=== PATIENT | male | born 1995 | race Caucasian/White ===

== ENCOUNTER 2021-09-25 08:27 | Outpatient (CLI) | payer OTHER, SELFPAY ==
[2021-09-25 16:53] LABS: HIV 1/2/P24 Combo Screen* Negative (Negative)
== END 2021-09-25 08:28 | disposition home or self-care (01) ==
PROVIDERS: PCP Family Medicine; Visit Provider Family Medicine
DX: Z11.3 Encounter for screening for infections with a predominantly sexual mode of transmission (principal)
CPT/HCPCS: 86701; 86702; 86703

== ENCOUNTER 2023-09-03 10:06 | Day surgery (SDC) | payer OTHER, SELFPAY ==
[2023-09-03] VITALS (13 sets, daily range): BP systolic 124–149; BP diastolic 69–91; PULSE 46–70; RESP 16; TEMP 36.4–36.6; O2SAT 98–100; BMI 25.8
--- OUTSIDE RECORDS SUMMARY | 2023-09-03 10:08 | XMS_ITS | Clinical Summary ---
Author Organization [facility] Address [place], [place] [address] Care Team Providers Care Parole Agent Name Role Phone Rey Lux MD Primary Care Provider [phone] Allergies No known active allergies Medications Medication Sig Dispensed Refills Start Date End Date Status nitroglycerin 0.2 mg/hr (NITRO-DUR) 0.2 mg/hr patchIndications:Quad riceps tendinitis Apply 1 Patch on dry, clean, hairless skin every morning. Cut patch in half and place on quad tendon. Wear for 12 hours each day only. 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 Social History Tobacco Use Types Packs/Day Years Used Date Smoking Tobacco: Never Smokeless Tobacco: Never Tobacco Cessation:Counseling Given: Yes Alcohol Use Standard Drinks/Week Comments No 0 (1 standard drink = 0.6 oz pur e alcohol) Sex and Gender Information Value Date Recorded Sex Assigned at Not on file Gender Identity Not on file Sexual Orientation Not on file Obstetrics History Last Filed Vital Signs Vital Sign Reading Time Taken Comments Blood Pressure 133/76 01/15/2018 9:25 AM [employer] Pulse 72 01/15/2018 9:25 AM [employer] Temperature 36.6 ??C (97.9 ??F) 07/17/2017 3:26 PM CD T Respiratory Rate - - Oxygen Saturation 96% 01/15/2018 9:25 AM [employer] Inhaled Oxygen Concentration - - Weight 85.7 kg (189 lb) 07/17/2017 3:26 PM CDT Height 178 cm (5' 10.08) 07/17/2017 3:26 PM CDT Body Mass Index 27.06 07/17/2017 3:26 PM CDT Plan of Treatment Health Maintenance Due Date Last Done Comments Tdap 2008 Depression screening for age 12+ 2009 HIV for age 15-65 2012 HPV series for age 9-26 (1 - Male 3-dose series) 2012 Hepatitis C screening for ag e 18-79 12/02/2015 Tetanus booster 2017 BMI (ht and wt on same day) for age 18+ 07/17/2018 07/17/2017, 04/18/2017 COVID-19 vaccine series (2022- season) 2022 Influenza for age 9-49 10/13/2023 Pneumococcal series for age 6-64 Aged Out No longer eligible b ased on patient's age to complete this topic Care Teams Parole Agent Relationship Specialty Start Date End Date Rey Lux MD [address] [place] [id number] PCP - General Family Practice 01/15/18
[2023-09-03] MEDS: SODIUM CHLORIDE 0.9 % (FLUSH) 10 ML SYRINGE IVF (10:53)
[2023-09-03] MEDS: LACTATED RINGERS 1000 ML 1,000 ML 100 ML IV (10:53)
--- NOTE | 2023-09-03 13:07 | PM.GSPRC ---
Operative Note Date of procedure: 09/03/23 Pre-op diagnosis: Anal mass x2 Post-op diagnosis: Same Type of Procedure: Excision of anal mass x2 Indications: Patient is a 27-year-old male who presented to clinic with protruding tissue from the anal opening. Clinical exam demonstrates 2 protruding lesions of the anal canal. Risks and benefits of excision in the operating room were discussed at length with the patient. Risks included, but were not limited to: Bleeding, infection, risk of damage to surrounding structures and possible need for additional procedures. All questions and concerns were addressed with patient agreeing to proceed. Procedure Description: After discussing the risks and benefits of the procedure, the patient signed informed consent.? The operative site was marked and the patient was brought to the operating room and placed on the operating table in supine position.? Care was taken to pad the patient's pressure points.?? The patient was then given sedation by anesthesia and a spinal block performed.?The patient was then transferred to the Operating Room table, placed in the prone jackknife position with appropriate bumps and padding. Care was taken to ensure the genitalia and breasts were properly positioned on the hip and chest rolls, respectively. The shoulders and arms were positioned with care to protect the brachial plexus. The buttocks were taped laterally. A sterile prep and drape was done in the usual fashion. External examination, digital rectal examination, and anoscopic examination were all done and revealed a 2 cm pedunculated mass on the anal verge posterior left lateral, as well as a 1.5 cm polyp more proximal in the anal canal and left lateral. Attention was 1st directed to the 1.5 cm polyp within the anal canal left lateral peer An elliptical incision was made with a needle tip electrocautery from the anoderm up into the anal canal just above the dentate line. Careful dissection of the mucosa was done in the plane between the internal anal sphincter and the submucosal vascular plexus. Having established the proper plane, the polyp tissue was then excised with the Ligasure device and sent to Pathology as proximal anal mass for analysis. Care was taken to preserve mucosa for a tension-free closure. The wound was closed in a running locked manner starting at the apex (proximal aspect of elliptical excision) with 4-0 chromic suture, coming out to the anoderm and then running back up in a simple fashion and tying down at the apex. Hemostasis was excellent. Attention was then directed to the 2 cm pedunculated mass on the anal verge posterior left lateral. An elliptical incision was made with a needle-tip electrocautery around the mass. Careful dissection mucosa was done in the plane between the internal anal sphincter and the submucosal vascular plexus. After the proper plane was established the polyp tissue was then excised with the LigaSure device and sent to pathology as distal anal mass for analysis. Care was taken to preserve mucus for a tension-free closure. The wound was closed in a running locked manner starting at the apex (proximal aspect of elliptical excision) with 4-0 chromic suture, coming out to the anoderm and then running back in a simple fashion and tied down at the apex. Hemostasis was excellent. A mixture of 0.25% bupivacaine and Exparel was used to anesthetize the incision sites. A bilateral pudendal nerve block was performed. The patient tolerated procedure well. There were no apparent complications. Instrument, sponge, and needle counts were correct at the end of the case. Findings: Anal masses x2, excised and sent to pathology. Anesthesia: MAC and spinal Surgeon: Lisa Woody MD Estimated blood loss (mL): 5 Additional Specimen Information: 1. Distal anal mass 2. Proximal anal mass Condition: stable Disposition: PACU
[2023-09-03] MEDS: BUPIVACAINE 0.25% 30 ML INJECTION (13:08)
[2023-09-03] MEDS: BUPIVACAINE LIPOSOME 133 MG/10 ML INJ INFILTRATI (13:08)
--- NOTE | 2023-09-03 13:10 | W.ANESCHARGE ---
Anesthesia Charges Start Date/Time Anesthesia Start Date: 09/03/23 Anesthesia Start Time: 12:15 Stop Date/Time Anesthesia Stop Date: 09/03/23 Anesthesia Stop Time: 13:11
--- NOTE | 2023-09-03 13:26 | W.ANESCHARGE ---
Anesthesia Charges Start Date/Time Anesthesia Start Date: 09/03/23 Anesthesia Start Time: 12:15 Stop Date/Time Anesthesia Stop Date: 09/03/23 Anesthesia Stop Time: 13:11
== END 2023-09-03 15:36 | disposition home or self-care (01) ==
PROVIDERS: PCP Family Medicine; Visit Provider Surgery
PROC: (CPT 46922; principal; 2023-09-03 12:30)
DX: K62.0 Anal polyp (principal); K62.89 Other specified diseases of anus and rectum
CPT/HCPCS: 46922; 00902; 88305; C9290; J0330; J0665; J1100; J1885; J2250; J2405; J2704; J3010; J7120